=== PATIENT | female | born 1955 | race American Indian/Alaskan Native ===

== ENCOUNTER 2017-07-25 09:35 | Outpatient (CLI) | payer MEDICARE ==
--- NOTE | 2017-07-25 15:26 | Mammography Report ---
RIGHT DIGITAL SCREENING MAMMOGRAM with CAD: 07/25/17 09:35:00 CLINICAL: Routine screening. Breast cancer survivor status post left mastectomy in 2014. COMPARISON:05/30/16 FINDINGS: The breast is heterogeneously dense, which may obscure small masses. Stable biopsy proven benign fibroadenoma with a biopsy clip at 11:30 o'clock.No other mass, suspicious architectural distortion or suspicious calcifications. IMPRESSION: No mammographic evidence of malignancy. BI-RADS CATEGORY: 2 -- Benign RECOMMENDATION: Routine screening in one year. ACR BI-RADS MAMMOGRAPHIC CODES: 0 = Needs additional imaging evaluation; 1 = Negative; 2 = Benign; 3 = Probably benign; 4 = Suspicious; 5 = Malignant; 6 = Known biopsy-proven malignancy COMMENT: 1. Dense breast tissue, i.e., adenosis, fibrocystic changes, etc., may obscure an underlying neoplasm. 2. Approximately 10% of cancers are not detected with mammography. 3. A negative mammography report should not delay biopsy if a clinically suspicious mass is present. COMMENT: Patient follow-up letters are generated via our [employer] application.
== END 2017-07-25 09:36 | disposition home or self-care (01) ==
LOC: SPVWC 09:35
PROVIDERS: ATTEND Internal Medicine Hematology & Oncology
DX: Z12.31 Encounter for screening mammogram for malignant neoplasm of breast (principal)
CPT/HCPCS: 77067; G0202; G0202-52